=== PATIENT | male | born 1945 | race Caucasian/White ===

== ENCOUNTER → 2018-08-27 11:43 | Outpatient (CLI) | payer MEDICARE, SELFPAY ==
[2018-08-27 12:33] LABS: Alanine Aminotransferase 50 IU/L (21-72); Aspartate Aminotransferase 58 IU/L (17-59); BUN Creatinine Ratio 22.2 (6-22); Blood Urea Nitrogen 20 mg/dL (9-20); Calcium 10.1 mg/dL (8.4-10.2); Carbon Dioxide 27 mmol/L (22-32); Chloride 102 mmol/L (98-107); Cholesterol 180 mg/dL (140-199); Estimated Glomerular Filt Rate > 60.0 mL/min (>60); Glucose 111 mg/dL (80-110); HDL Cholesterol 98 mg/dL (40-60); HEMOLYSIS < 15 (0-50); LDL Cholesterol Calculated 70 mg/dL (<100); Potassium 4.2 mmol/L (3.4-5.1); Sodium 145 mmol/L (137-145); Triglycerides 59 mg/dL (35-150)
== END ==
PROVIDERS: PCP Internal Medicine; Visit Provider Internal Medicine
DX: I10 Essential (primary) hypertension (principal); E78.5 Hyperlipidemia, unspecified
CPT/HCPCS: 36415; 80048; 80061; 84450; 84460

== ENCOUNTER → 2018-12-09 08:39 | Outpatient (CLI) | payer MEDICARE, SELFPAY ==
[2018-12-09 10:40] LABS: Cholesterol 177 mg/dL (140-199); HDL Cholesterol 88 mg/dL (40-60); LDL Cholesterol Calculated 70 mg/dL (<100); Triglycerides 94 mg/dL (35-150)
== END ==
PROVIDERS: PCP Internal Medicine; Visit Provider Nurse Practitioner
DX: I25.119 Atherosclerotic heart disease of native coronary artery with unspecified angina pectoris (principal)
CPT/HCPCS: 36415; 80061

== ENCOUNTER → 2019-01-27 11:06 | Outpatient (CLI) | payer MEDICARE, SELFPAY ==
[2019-01-27 12:41] LABS: Magnesium 1.8 mg/dL (1.6-2.3)
== END ==
PROVIDERS: PCP Internal Medicine; Visit Provider Internal Medicine Cardiovascular Disease
DX: I47.2 Ventricular tachycardia (principal)
CPT/HCPCS: 36415; 83735

== ENCOUNTER → 2019-01-30 08:29 | Outpatient (CLI) | payer MEDICARE, SELFPAY ==
--- NOTE | 2019-01-30 | DI.NM.S_ITS ---
PROCEDURE: NM SACHA PERF SPECT R&S PHARM Rest and pharmacological stress myocardial perfusion SPECT with gated imaging and ejection fraction RADIOPHARMACEUTICAL: 25.8 mCi Tc-99m tetrafosmin IV at rest and 26.2 mCi Tc-99m tetrafosmin IV at peak effect of pharmacological stress. [id number] was performed. INDICATIONS: Presence of aortocoronary bypass graft COMPARISON: None. CARDIAC STRESS: A pharmacologic stress test was performed under the supervision of an attending staff, using an infusion of Lexiscan. . Hemodynamic data: There is normal blood pressure and heart rate response to pharmacologic stress. Symptoms: The patient denied anginal chest pain. Aminophylline: Not used. EKG: No diagnostic changes of ischemia; no ectopy. FINDINGS: Raw data: There is good myocardial uptake of radiotracer. No significant motion artifacts. Rvrr-kk-davee ratio is 0.37 (normal is less than 0.38 for tetrafosmin tracer). Left ventricle function: Gated images demonstrate akinesis of the septum; otherwise normal left ventricular wall thickening. No other segmental wall motion abnormalities. No transient ischemic dilation; TID is 0.67 (normal less than 1.3). Left ventricle resting end diastolic volume is 79 mL. Left ventricle stress ejection fraction is 77% ; normal range is above 45%. Myocardial perfusion: There is a medium size, moderately severe defect involving the apical septal, mid anteroseptal and mid inferoseptal regions at rest which becomes slightly more severe with stress, consistent with prior infarct with mild vinayak-infarct ischemia .technical response to the akinesis on the gated images. Otherwise there is normal distribution of activity in the right and left ventricular myocardium. No fixed or reversible perfusion defects. IMPRESSION: -Abnormal study with a medium sized, moderately severe, predominantly fixed septal defect consistent with prior infarct with mild vinayak-infarct ischemia. -Normal LVEF. -No prior studies for comparison. Dictated by: Kumar Alvarez M.D. on 01/31/2019 at 16:52 Approved by: Kumar Alvarez M.D. on 01/31/2019 at 16:59
--- NOTE | 2019-01-30 09:48 | PM.TREADMILL ---
Cardiac Stress Test Report Referral & Results Date Patient Seen: 01/30/19 Requesting provider: Henry Grewal Indication: Coronary disease Rest ECG: Unremarkable Procedure Note: After both written and verbal informed consent the patient had an IV started by the diagnostic imaging RN and then was hooked up to the treadmill monitoring system. The patient was placed on the treadmill at 1 mile an hour with no elevation and was then injected with the Oralia scan material. The Cardiolite was then immediately administered. The patient spent an additional 2-3 minutes on the treadmill before being returned to the [facility] in the supine position. The patient had a normal response to all infused materials. Impression: Normal response as above, please see perfusion imaging report for details regarding possible ischemia Please note: Actual ECG tracings can be found in the PACS system.
== END ==
PROVIDERS: PCP Internal Medicine; Visit Provider Internal Medicine Cardiovascular Disease
DX: I25.10 Atherosclerotic heart disease of native coronary artery without angina pectoris (principal); I25.2 Old myocardial infarction; Z95.1 Presence of aortocoronary bypass graft
CPT/HCPCS: 78452; 93016; 93017; 93018; A9502; J2785

== ENCOUNTER → 2019-04-15 10:21 | Outpatient (CLI) | payer MEDICARE, SELFPAY ==
[2019-04-15 11:40] LABS: Cholesterol 129 mg/dL (140-199); HDL Cholesterol 39 mg/dL (40-60); LDL Cholesterol Calculated 78 mg/dL (<100); Triglycerides 60 mg/dL (35-150)
== END ==
PROVIDERS: PCP Internal Medicine; Visit Provider Internal Medicine Cardiovascular Disease
DX: E78.5 Hyperlipidemia, unspecified (principal)
CPT/HCPCS: 36415; 80061

== ENCOUNTER → 2019-11-05 16:43 | Outpatient (CLI) | payer OTHER, SELFPAY ==
--- NOTE | 2019-11-05 16:46 | DI.MRI.S_ITS ---
PROCEDURE: MR LUMBAR SPINE WO CON INDICATIONS: LUMBAGO WITH SCIATICA, RIGHT SIDE. TECHNIQUE: Noncontrast sagittal T1 spin echo and T2 fast echo, sagittal STIR, axial T1 and T2 fast spin echo through the lumbar spine. In cases with scoliosis, additional coronal T2 fast spin echo may be performed. COMPARISON: None. FINDINGS: Image quality: Excellent. Alignment and Curvature: Grade 1 retrolisthesis of L2 on L3 and L3 on L4. Grade 1 anterolisthesis of L4 and L5. Minimal anterior wedging of the T11 vertebral body although appears chronic. Bone Marrow: No acute fracture. Multilevel degenerative endplate sclerosis and spurring. Diffuse facet arthropathy. Spinal Cord: Conus medullaris terminates at the L1 level. Visualized cord demonstrates normal signal and size. Paraspinous Soft Tissues: No paravertebral masses. A presumed T2 hyperintense right renal cyst. There is nonspecific, dependent posterior subcutaneous soft tissue edema from level of L1-sacrum. L1-L2: Minimal central canal narrowing. Lateral recesses appear patent. Broad-based left lateral disc bulge. Moderate left foraminal narrowing. Mild right foraminal stenosis. L2-L3: Mild dorsal epidural lipomatosis. Moderate central canal narrowing. Partial effacement of both lateral recesses with bilaterally symmetric appearance. Circumferential although right greater left broad-based disc bulge. Severe right foraminal stenosis with nerve root compression. Severe left foraminal narrowing with nerve root compression. L3-L4: Moderate central canal narrowing. Partial effacement of both lateral recesses with bilaterally symmetric appearance. Severe bilateral foraminal stenosis with nerve root compression L4-L5: Moderate central canal narrowing. Partial effacement of both lateral recesses with bilaterally symmetric appearance. Severe right and moderate left foraminal stenoses, with slight nerve root compression on both sides L5-S1: Mild to moderate central canal narrowing. Partial effacement of both lateral recesses with bilaterally symmetric appearance. Severe bilateral foraminal stenoses with nerve root compression on both sides. IMPRESSION: Multilevel lumbar spondylosis and spondylolisthesis as detailed above Numerous bilateral foraminal stenoses, most pronounced at L2-L3, L3-L4, L4-L5 and L5-S1 Moderate central canal narrowing at L2-L3, L3-L4, L4-L5. Dictated by: Cali Fowler M.D. on 11/06/2019 at 9:11 Approved by: Cali Fowler M.D. on 11/06/2019 at 9:19
== END ==
PROVIDERS: PCP Internal Medicine; Referring Provider Internal Medicine; Visit Provider Internal Medicine
DX: M54.41 Lumbago with sciatica, right side (principal); M47.816 Spondylosis without myelopathy or radiculopathy, lumbar region; M43.16 Spondylolisthesis, lumbar region; M48.061 Spinal stenosis, lumbar region without neurogenic claudication; M48.07 Spinal stenosis, lumbosacral region
CPT/HCPCS: 72148

== ENCOUNTER → 2019-11-20 08:23 | Outpatient (CLI) | payer OTHER, SELFPAY ==
[2019-11-20 09:27] LABS: BUN Creatinine Ratio 23.6 (6-22); Blood Urea Nitrogen 26 mg/dL (9-20); Calcium 9.1 mg/dL (8.4-10.2); Carbon Dioxide 29 mmol/L (22-32); Chloride 102 mmol/L (98-107); Cholesterol 140 mg/dL (140-199); Estimated Glomerular Filt Rate > 60.0 mL/min (>60); Glucose 105 mg/dL (80-110); HDL Cholesterol 52 mg/dL (40-60); HEMOLYSIS < 15 (0-50); LDL Cholesterol Calculated 79 mg/dL (<100); Potassium 3.8 mmol/L (3.4-5.1); Sodium 140 mmol/L (137-145); Triglycerides 46 mg/dL (35-150)
== END ==
PROVIDERS: PCP Internal Medicine; Referring Provider Internal Medicine Cardiovascular Disease; Visit Provider Internal Medicine Cardiovascular Disease
DX: R60.0 Localized edema (principal); E78.5 Hyperlipidemia, unspecified
CPT/HCPCS: 36415; 80048; 80061

== ENCOUNTER → 2020-02-01 10:09 | Outpatient (CLI) | payer OTHER, SELFPAY ==
[2020-02-05 04:36] LABS: COVID19 Sendout Not Detected (Not Detected)
== END ==
PROVIDERS: PCP Internal Medicine; Visit Provider Registered Nurse
DX: Z01.818 Encounter for other preprocedural examination (principal)
CPT/HCPCS: 87635